=== PATIENT | female | born 1995 | race Two or more races ===

== ENCOUNTER 2023-06-21 05:10 | Emergency (ER) | payer OTHER ==
[~2023-06-21] VITALS: Ht 162.6 cm; Wt 59.9 kg
[2023-06-21 06:21] LABS: URINE APPEARANCE Clear; URINE BILIRRUBIN Negative (NEGATIVE); URINE BLOOD Moderate; URINE COLOR Yellow; URINE GLUCOSE Negative (NEGATIVE); URINE LEUKOCYTE Large; URINE NITRATE Negative; URINE PROTEIN Negative (NEGATIVE); URINE UROBILINOGEN 0.2 E.U./dl
[2023-06-21 06:23] LABS: URINE BACTERIA 231.7 uL (0.0-1933); URINE EPITHELIAL CELLS 9.8 uL (0.0-38.8); URINE WBC 332.6 uL (0.0-23.2)
[2023-06-21 06:30] LABS: URINE RBC 0.5 uL (0.0-20.8)
[2023-06-21] MEDS ORDERED: PYRIDIUM DS200 MG PO (06:43)
[2023-06-21] MEDS ORDERED: CEPHALEXIN500 MG PO (06:43)
== END 2023-06-21 06:49 ==
LOC: ER 05:10
PROVIDERS: General Practice
DX: N30.90 Cystitis, unspecified without hematuria (principal)